=== PATIENT | female | born 1995 | race Caucasian/White ===

== ENCOUNTER 2022-04-30 02:19 | Day surgery (SDC) | payer BC, OTHER ==
[2022-04-30 02:42] VITALS: BMI 30.8
[2022-04-30] MEDS ORDERED: Promethazine HCl 25 MG/ML VIAL IM PRN (08:41)
[2022-04-30] MEDS ORDERED: hydrALAZINE 20 MG/ML VIAL SLOW IVP PRN (08:41)
[2022-04-30] MEDS ORDERED: Meperidine HCl/PF 25 MG/ML VIAL IM PRN (08:49)
== END 2022-04-30 09:40 | disposition home or self-care (01) ==
LOC: CSHLD/OP 02:19
PROVIDERS: ATTEND Obstetrics & Gynecology
DX: O47.1 False labor at or after 37 completed weeks of gestation (principal); O48.0 Post-term pregnancy; O99.891 Other specified diseases and conditions complicating pregnancy; N89.8 Other specified noninflammatory disorders of vagina; Z3A.40 40 weeks gestation of pregnancy
CPT/HCPCS: 96372; 99282; J2175; J2550

== ENCOUNTER 2022-04-30 22:24 | Day surgery (SDC) | payer BC, OTHER ==
[2022-04-30 22:45] VITALS: BMI 30.8
[2022-04-30] MEDS ORDERED: hydrALAZINE 20 MG/ML VIAL SLOW IVP PRN (23:33)
== END 2022-05-01 02:21 | disposition home or self-care (01) ==
LOC: CSHLD/OP 22:24
PROVIDERS: ATTEND Obstetrics & Gynecology
DX: O47.1 False labor at or after 37 completed weeks of gestation (principal); O48.0 Post-term pregnancy; O99.891 Other specified diseases and conditions complicating pregnancy; R35.0 Frequency of micturition; Z3A.40 40 weeks gestation of pregnancy
CPT/HCPCS: 99282

== ENCOUNTER 2022-05-01 20:25 | Inpatient (IN) | payer BC, OTHER ==
[2022-05-01] MEDS ORDERED: Promethazine HCl 25 MG/ML VIAL IM PRN ×2 (21:10→22:09)
[2022-05-01] MEDS ORDERED: Misoprostol 200 MCG TAB PR PRN (21:10)
[2022-05-01] MEDS ORDERED: Diphenoxylate HCl/Atropine Tablet PO PRN ×2 (21:10)
[2022-05-01] MEDS ORDERED: Methylergonovine 0.2 MG/ML VIAL IM PRN (21:10)
[2022-05-01] MEDS ORDERED: Ondansetron PF 4 MG/2 ML Vial IVP PRN ×2 (21:10→22:09)
[2022-05-01] MEDS ORDERED: HYDROcodone/Acetaminophen 5/325 mg Tablet PO PRN ×2 (21:10)
[2022-05-01] MEDS ORDERED: hydrALAZINE 20 MG/ML VIAL SLOW IVP PRN (21:10)
[2022-05-01] MEDS ORDERED: Lidocaine 1% (PF) 30 ML VIAL SC PRN (21:10)
[2022-05-01] MEDS ORDERED: Carboprost 250 MCG/ML AMP IM PRN (21:10)
[2022-05-01] MEDS ORDERED: Butorphanol Tartrate 1 MG/ML VIAL SLOW IVP PRN (21:10)
[2022-05-01] MEDS ORDERED: Ibuprofen 800 MG TAB PO PRN (21:10)
[2022-05-01] MEDS ORDERED: Lactated Ringer's 1,000 ML IV SCH (21:15)
[2022-05-01] MEDS ORDERED: NS w/ Oxytocin 30 units 500 ML IV SCH ×2 (21:15)
[2022-05-01 21:31] LABS: Hemoglobin 12.1 g/dL (12.0-15.5); Mean Corpuscular Hemoglobin 30.3 pg (27.0-33.0); Mean Corpuscular Volume 86.7 fl (81.6-98.3); Mean Platelet Volume 12.2 fl (7.4-10.4); Platelet Count 225 10x3/uL (150-450); RBC Distribution Width 13.6 % (11.5-14.5); Red Blood Cell (RBC) Count 3.99 10x6/uL (3.90-5.03); White Blood Cell (WBC) Count 6.8 10x3/uL (3.5-10.5)
[2022-05-01 21:35] VITALS: BMI 30.8
[2022-05-01] MEDS ORDERED: Fentanyl 2 mcg/Bup 0.1% Cadd 100 ML ONE (21:44)
[2022-05-01 22:00] LABS: Hep B Surf Ag Non-Reactive S/CO (NonReactive)
[2022-05-01 22:01] LABS: Syphilis Antibody Nonreactive (Nonreactive); Syphilis Antibody Index 0.09 S/CO (<1.00 Non-Reactive)
[2022-05-01] MEDS ORDERED: Acetaminophen 325 MG TAB PO PRN (22:09)
[2022-05-01] MEDS ORDERED: Moisturizing Cream (Eucerin) 113 GM JAR TOP PRN (22:09)
[2022-05-01] MEDS ORDERED: ePHEDrine Sulfate 50 MG/10 ML VIAL SLOW IVP PRN (22:09)
[2022-05-01] MEDS ORDERED: Lactated Ringer's 500 ML IV PRN (22:09)
[2022-05-01] MEDS ORDERED: Naloxone HCl 0.4 mg/ml Vial IVP PRN ×2 (22:09)
[2022-05-01] MEDS ORDERED: diphenhydrAMINE 50 MG/ML VIAL IVP PRN (22:09)
[2022-05-01] MEDS ORDERED: Fentanyl 2 mcg/Bupivacaine 0.1% Cassette 100 ML EPIDURAL SCH (22:15)
[2022-05-01] MEDS ORDERED: Communication Order-Pharmacy FS SCH (22:15)
[2022-05-02 00:31] LABS: SARS-CoV-2 NAA Rapid Test Not Detected (NotDetected)
[2022-05-02] MEDS ORDERED: hydrALAZINE 20 MG/ML VIAL SLOW IVP PRN (05:25)
[2022-05-02] MEDS ORDERED: Bisacodyl 10 MG SUPP PR PRN (05:25)
[2022-05-02] MEDS ORDERED: Milk Of Magnesia 30 ML UDCUP PO PRN (05:25)
[2022-05-02] MEDS ORDERED: Ondansetron PF 4 MG/2 ML Vial IVP PRN (05:25)
[2022-05-02] MEDS ORDERED: HYDROcodone/Acetaminophen 5/325 mg Tablet PO PRN ×2 (05:25)
[2022-05-02] MEDS ORDERED: Boostrix 0.5 ML (Tdap) VIAL IM ONE (05:25)
[2022-05-02] MEDS ORDERED: Misoprostol 200 MCG TAB VAG PRN (05:25)
[2022-05-02] MEDS ORDERED: Benzocaine-Menthol 82.5 ML CAN TOP PRN (05:25)
[2022-05-02] MEDS ORDERED: Lanolin Ointment 7 GM TUBE TOP PRN (05:25)
[2022-05-02] MEDS ORDERED: NS w/ Oxytocin 30 units 500 ML IV SCH (06:00)
[2022-05-02] MEDS: Ibuprofen 800 MG TAB PO SCH ×3 (06:26→22:23)
[2022-05-02] MEDS: Ferrous Sulfate 325 MG TAB PO SCH ×2 (09:26→15:35)
[2022-05-02] MEDS: Prenatal Vitamin 1 TAB PO SCH (10:20)
[2022-05-02] MEDS: Docusate 100 MG CAP PO SCH ×2 (10:20→22:23)
[2022-05-03] MEDS: Ibuprofen 800 MG TAB PO SCH ×2 (05:39→14:04)
[2022-05-03 06:37] VITALS: TEMP 97.6
[2022-05-03 07:34] VITALS: BP 114/75
[2022-05-03] MEDS: Ferrous Sulfate 325 MG TAB PO SCH ×2 (08:01→15:48)
[2022-05-03] MEDS: Prenatal Vitamin 1 TAB PO SCH (08:02)
[2022-05-03] MEDS: Docusate 100 MG CAP PO SCH (08:02)
== END 2022-05-03 16:35 | disposition home or self-care (01) | DRG 807 ==
LOC: CSHLD/OP 20:25 → CSHLD 20:48 → CSHPP 05-02 05:42
PROVIDERS: ADMIT Obstetrics & Gynecology; ATTEND Obstetrics & Gynecology
PROC: 10E0XZZ Delivery of Products of Conception, External Approach (ICD-10-PCS; principal; 2022-05-02)
PROC: 0UQMXZZ Repair Vulva, External Approach (ICD-10-PCS; 2022-05-02)
DX: O70.0 First degree perineal laceration during delivery (principal); Z37.0 Single live birth; Z3A.40 40 weeks gestation of pregnancy; Z20.822 Contact with and (suspected) exposure to COVID-19
CPT/HCPCS: 36415; 51702; 85027; 86780; 86850; 86900; 86901; 87340; J2590; U0002